=== PATIENT | female | born 1975 | race Two or more races ===

== ENCOUNTER → 2022-11-18 10:06 | Outpatient (BNVA) | payer SELFPAY | PROVIDERS: Visit Provider Physician Assistant Medical | DX: Z02.1 Encounter for pre-employment examination (principal) ==

== ENCOUNTER 2023-05-05 07:17 | Outpatient (REF) | payer OTHER, SELFPAY ==
--- NOTE | ~2023-05-05 | XR_ITS ---
EXAMINATION: XR CHEST 2 VIEWS CLINICAL INFORMATION: Fatigue and recurrent fever. COMPARISON: None. TECHNIQUE: Frontal and lateral views of the chest were obtained. FINDINGS: The heart, great vessels, pulmonary vasculature and mediastinum are normal. The lungs show no focal infiltrate, effusion or pneumothorax. There is no acute osseous abnormality. XR/XR chest 2V IMPRESSION: No active cardiopulmonary disease.
[2023-05-05 07:53] LABS: MANUAL DIFF FLAG NO
[2023-05-05 08:03] LABS: Basophils Percent Auto 0.2 % (0-2); Eosinophils Absolute Auto 0.1 X10*3/uL (0.0-0.4); Eosinophils Percent Auto 0.4 % (0-4); Hematocrit 34.3 % (37.0-47.0); Hemoglobin 11.6 g/dl (12.0-16.0); Imm Gran Abs Auto 0.17 X10*3/uL (0.00-0.03); Imm Gran Pct Auto 0.9 % (0.0-0.4); Lymphocytes Absolute Auto 1.4 X10*3/uL (1.2-4.9); Lymphocytes Percent Auto 7.6 % (20-40); Mean Corpuscular HGB Conc 33.8 g/dl (31.0-35.0); Mean Corpuscular Hemoglobin 29.4 pg (27.0-33.0); Mean Corpuscular Volume 86.8 fL (80.0-98.0); Monocytes Absolute Auto 0.9 X10*3/uL (0.1-1.2); Monocytes Percent Auto 5.1 % (2-11); Neutrophils Absolute Auto 15.5 x10*3/uL (2.0-8.3); Neutrophils Percent Auto 85.8 % (45-73); Platelet Count 329 X10*3/uL (160-400); Red Blood Count 3.95 X10*6/uL (4.20-5.50); Red Cell Distribution Width 14.6 % (11.0-16.0); White Blood Count 18.1 X10*3/uL (4.8-10.8)
[2023-05-05 08:41] LABS: Alanine Aminotransferase 15 U/L (0-31); Albumin Level 3.7 g/dL (3.5-5.0); Alkaline Phosphatase 111 U/L (39-117); Anion Gap 14 (12-20); Aspartate Amino Transferase 24 U/L (5-31); Bilirubin Total 0.3 mg/dL (0.0-1.0); Blood Urea Nitrogen 14 mg/dL (9-16); Carbon Dioxide 21 mmol/L (22-29); Chloride 104 mmol/L (96-108); Estimated Glomerular Filt Rate > 60; Glucose Random 94 mg/dL (60-115); Potassium 3.3 mmol/L (3.3-5.1); Sodium 136 mmol/L (135-145); Total Protein 7.2 g/dL (6.5-8.0)
[2023-05-05 08:46] LABS: Appearance Urine Cloudy; Color Urine Yellow; Glucose Urine UA Negative (Negative); Leukocyte Esterase Urine Moderate (2+) (Negative); Nitrite Urine Positive (Negative); UMIC TRIGGER UA YES; Urine Blood Negative (Negative); Urine Ketones Trace mg/dL (Negative); Urine Protein 100 (2+) mg/dL (Neg-Trace)
[2023-05-05 08:55] LABS: Bacteria Urine 4+ (None Seen); Hyaline Casts Urine 0-2 /LPF (0-2); RBC Urine 0-2 /HPF (0-2); Squamous Epithelial Cell Urine 0-2 /HPF (0-2); WBC Urine >50 /HPF (0-5)
[2023-05-05 09:00] LABS: Influenza A PCR NEGATIVE (Negative); Influenza B PCR NEGATIVE (Negative); Resp Syncy Virus RNA Qual PCR NEGATIVE (Negative); SARS COV2 PCR INHOUSE NEGATIVE (Negative)
[2023-05-06 15:29] LABS: Follicle Stimulating Hormone 63.7 mIU/mL; Lutenizing Hormone 52.2 mIU/mL
[2023-05-06 21:34] LABS: A. Phagocytphilium DNA,RT-PCR NOT DETECTED (NOT DETECTED); Babesia Microti DNA, RT-PCR NOT DETECTED (NOT DETECTED); Borrelia Miyamotoi,DNA RT-PCR NOT DETECTED (NOT DETECTED); E.Chaffeensis DNA RT-PCR NOT DETECTED (NOT DETECTED); Lyme(Borrelia ssp)DNA RT-PCR NOT DETECTED (NOT DETECTED)
[2023-05-11 22:53] LABS: Progesterone <0.1 ng/mL
[2023-05-12 03:19] LABS: Estradiol Ultra Sensitive 12 pg/mL
== END 2023-05-05 07:18 | disposition home or self-care (01) ==
LOC: HO.LAB 07:17
PROVIDERS: Visit Provider Emergency Medicine
DX: Z11.52 Encounter for screening for COVID-19 (principal); R53.83 Other fatigue; R50.9 Fever, unspecified
CPT/HCPCS: 0241U; 71046; 80053; 81001; 82550; 82670; 83001; 83002; 84144; 85025; 87040; 87086; 87088; 87186; 87468; 87469; 87478; 87484; 87798

== ENCOUNTER 2023-09-01 11:13 | Outpatient (REF) | payer OTHER, SELFPAY ==
--- NOTE | ~2023-09-01 | US_ITS ---
EXAMINATION: US PELVIS CLINICAL INFORMATION: Suprapubic pain, palpable fullness, right pelvic pain COMPARISON: None available. TECHNIQUE: Ultrasound of the pelvis is performed using both transabdominal and transvaginal transducers along with Doppler. Transvaginal imaging is performed due to inadequate visualization transabdominally. FINDINGS: Uterus: The uterus is possibly anteverted measuring 8.4 x 3.8 x 0.7 cm. 3.7 x 2.3 x 3.0 cm left-sided uterine body fibroid is seen The double wall endometrial thickness is 0.7 mm. Adnexa: Right ovary is not visualized. 15 x 12 x 18 cm right cystic mass is seen containing septations and internal echoes. Mass contains multiple solid components, largest measuring 5.8 x 3.3 x 4.7 cm. No internal vascularity is demonstrated. Left ovary measures 3.2 x 2.6 x 2.7 cm. Volume is 11.8 mL. US/US pelvic and transvaginal IMPRESSION: Suspicious 18 cm right adnexal mass, predominantly cystic containing multiple solid components, malignancy needs to be excluded. Pelvic MRI and DIRECTOR OF REIMBURSEMENT consultation recommended.
== END 2023-09-01 11:14 | disposition home or self-care (01) ==
LOC: HO.US 11:13
PROVIDERS: Visit Provider Emergency Medicine
DX: R10.30 Lower abdominal pain, unspecified (principal)
CPT/HCPCS: 76830; 76856

== ENCOUNTER 2024-07-07 10:26 | Outpatient (AMB) | payer OTHER, SELFPAY ==
[2024-07-07 10:32] VITALS: BP 102/70; BMI 24.0
--- NOTE | 2024-07-07 10:32 | MHC.PC.OV ---
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 Family Required: No Accompanied by: Self / Same As Patient Allergies No Known Allergies Allergy (Verified 07/07/24 10:53) Medication List - Last Reconciled 07/07/24 by Tiera Mckeon MD apixaban (Eliquis) mg PO Tobacco use date assessed: 07/07/24 Dental Screening Dental Screen Date: 07/07/24 Did you have a dental visit in the last 12 months?: No Did you have a dental problem in the last 6 months where you did not have access to dental care?: No Was dental information given to patient?: Patient has dentist HPI HPI Comments History of Present Illness Details The patient is a 49-year-old female presenting to [facility] following her treatment for primary clear cell adenocarcinoma of the ovary. She submitted to chemotherapy and radiotherapy as part of her initial treatment regimen. 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 She concurrently developed a deep venous thrombosis in the left common iliac vein, further complicating her recovery. Over time, she has successfully regained her ability to ambulate without restriction and has returned to work. Care was previously acquired at [facility], and she describes her current lifestyle as active, with regular exercise being a part of her routine. She has no history of undergoing a colonoscopy or mammogram, although she claims adherence to regular gynecological evaluations. The patient's immunization record includes a Tdap vaccine administered within the last 10 years. On Eliquis for her DVT. [facility] Surgical History (Updated 07/07/24 @ 10:54 by Tiera Mckeon MD) History of hysterectomy with bilateral oophorectomy History of appendectomy Family History Mother Hyperlipidemia Atrial fibrillation Father Diabetes Hypertension Hypothyroidism Hyperlipidemia Family/Other Mental health disorder Social History Housing: Apartment Alcohol intake: current Alcohol intake frequency: a few times a month Alcohol type: beer Patient Tobacco Use Status: Never used Tobacco e-Cigarette/Vaping Use: Never Used Second Hand Smoke Exposure: No service: No Current occupational status: employed Current occupational exposures/hazards: No Cognitive needs: No Hearing needs: No Vision needs: Yes Questionnaire PHQ-9 Over the last 2 weeks, how often have you been bothered by any of the following problems? 1. Little interest or pleasure in doing things: not at all 2. Feeling down, depressed, or hopeless: not at all 3. Trouble falling or staying asleep, or sleeping too much: not at all 4. Feeling tired or having little energy: not at all 5. Poor appetite or overeating: not at all 6. Feeling bad about yourself - or that you are a failure or have let yourself or your family down: not at all 7. Trouble concentrating on things, such as reading the newspaper or watching television: not at all 8. Moving or speaking so slowly that other people could have noticed. Or the opposite - being so fidgety or restless that you have been moving around a lot more than usual: not at all 9. Thoughts that you would be better off or of hurting yourself in some way: not at all Total score: 0 Depression Screening Interpretation: Negative Depression Screening Done: Yes 18508 - PHQ-9 Billing: Yes Source: Developed by Drs. Mekhi Cuevas, Brittney Rg, Brice Dorado and colleagues, with an educational chary from [employer]. Thrive Questionnaire Date Thrive assessed: 07/07/24 I am a: Patient What is your living situation today?: I have a steady place to live Within the past 12 months, did the food you bought not last and you didn't have the money to get more?: Never true Within the past 12 months, did you worry whether your food would run out before you got money to buy more?: Never true Do you have trouble paying for medicines?: No Do you have trouble getting transportation to medical appointments?: No Do you have trouble paying your heating and electricity bill?: No Do you have trouble taking care of your child, family member or friend?: No Do you have trouble with day-to-day activities such as bathing, preparing meals, shopping, managing finances, etc.?: No Are you currently unemployed and looking for a job?: No Are you interested in more education?: No Please select the resources that you would like help with: None Currently or been in a relationship where the following occur: No concerns reported THRIVE Score: 0 AUDIT C Alcohol Use Questionnaire (AUDIT-C) 1. How often do you have a drink containing alcohol?: Monthly or less 2. How many drinks containing alcohol do you have on a typical day when you are drinking?: 1 or 2 3. How often do you have six or more drinks on one occasion?: Never Total Score: 1 AVNI-7 AMB Questionnaire AVNI-7 Date AVNI - 7 assessed: 07/07/24 Feeling nervous, anxious, or on edge: 0 = Not at all Not being able to stop or control worryin = Not at all Worrying too much about different things: 0 = Not at all Trouble relaxin = Not at all Being so restless that it is hard to sit still: 0 = Not at all Becoming easily annoyed or irritable: 0 = Not at all Feeling afraid as if something awful might happen: 0 = Not at all Total AVNI-7 score (0-4 normal; 5-9 mild; 10-14 moderate; 15-21 severe): 0 Source: Developed by Drs. Mekhi Cuevas, Brittney Rg, Brice Dorado and colleagues, with an educational chary from [employer]. AVNI-7 Assessment Billing AVNI-7 Assessment Tool: AVNI-7 Assessment 69940 Review of Systems Const All systems reviewed & are unremarkable except as noted in HPI and below Card Denies chest pain at rest, Denies chest pain with activity, Denies edema, Denies irregular heart rhythm, Denies claudication, Denies dyspnea, Denies dyspnea on exertion, Denies orthopnea, Denies paroxysmal nocturnal dyspnea and Denies slow heart rate Resp Denies cough, Denies dyspnea and Denies dyspnea on exertion Physical exam (Primary Care) Vital Signs: Last Vital Signs BP 102/70 07/07/24 10:32 BMI result Body Mass Index 24.0 Tobacco/Smoking Status: Tobacco use Status Tobacco use date assessed 07/07/24 07/07/24 10:34 Patient Tobacco Use Status Never used Tobacco 07/07/24 10:37 e-Cigarette/Vaping Use Never Used 07/07/24 10:37 PHQ-9: PHQ-9 Score PHQ-9: Total score 0 05/22/25 10:34 Depression Screening Interpretation: Negative Thrive Assessment: Date of Thrive Assessment Date Thrive assessed 07/07/24 07/07/24 10:34 Currently or been in a relationship where the following occur: No concerns reported Resp Effort & Inspection: normal respiratory effort Auscultation: clear to auscultation bilaterally Cardio Jugular venous distension: no JVD Rate: regular rate Rhythm: regular rhythm Heart sounds: S1 normal heart sound present and S2 normal heart sound present Neuro General: no focal motor deficits Extrem General: Yes full ROM Psych Appearance: grossly normal Coding Level of Care Code New Pt Level 3 (81087) Diagnoses Primary clear cell adenocarcinoma of ovary C56.9 Chronic deep vein thrombosis (DVT) of iliac vein of left lower extremity I82.522 Affected thrombotic vein of extremity: iliac Chronicity: chronic Additional Codes PHQ-9 - 94379 - PHQ-9 Billing: Yes ([id number]) AVNI-7 Assessment Billing - AVNI-7 Assessment Tool: AVNI-7 Assessment 68214 ([id number]) Time Spent (min) 19 Assessment & Plan Assessment & Plan (1) Primary clear cell adenocarcinoma of ovary: Code(s): C56.9 - Malignant neoplasm of unspecified ovary Category: Medical (2) Left leg DVT: Comment: common iliac Code(s): I82.402 - Acute embolism and thrombosis of unspecified deep veins of left lower extremity Category: Medical Qualifiers: Affected thrombotic vein of extremity: iliac Chronicity: chronic Qualified Code(s): I82.522 - Chronic embolism and thrombosis of left iliac vein Plan The focus is on continued care monitoring for the clear cell adenocarcinoma of the ovary post-treatment. As the patient has successfully resumed her daily activities, her history of deep venous thrombosis will be under periodic review, with the need for any anticoagulation therapy reassessed accordingly. It is essential to embark on routine cancer screenings such as colonoscopy and mammography. Regular follow-up with OBGYN services is advised, aligning with the recent Tdap vaccination, to ensure continued prevention measures. The patient is encouraged to maintain her active lifestyle, benefiting her health recovery and general wellness. Patient was informed and verbally consented to the use of an ambient scribe for clinic note documentation during this visit. I explained the importance of continued monitoring after the treatment of primary clear cell adenocarcinoma of the ovary and emphasized the need for routine cancer screenings going forward. I discussed the potential necessity of re-evaluating anticoagulation therapy for her previous deep venous thrombosis. We reviewed the benefits of maintaining current OBGYN visits and stressed the positive impact of an active lifestyle on her post-treatment recovery. I recommended initiating regular colonoscopy and mammography screenings. The patient expressed understanding and agreement with the outlined plan and acknowledged the benefits of ongoing preventative health measures. Orders: Orders MM tomosynthesis screening BI Today Z12.31 - Encounter for screening mammogram for malignant neoplasm of breast Referrals Open Access Screening Colonoscopy Referral Z12.12 - Encounter for screening for malignant neoplasm of rectum Patient Instructions: - Keep up with regular exercise to maintain an active lifestyle. - Schedule and complete routine cancer screenings (colonoscopy and mammography). - Continue with OBGYN visits and follow-up on vaccination history. - Remain vigilant about any symptoms that may affect your ability to move. - Monitor any signs of previous DVT recurrence and seek care if issues arise.
--- OUTSIDE RECORDS SUMMARY | 2024-07-07 10:57 | XMS_ITS | Encounter Summary ---
Author Organization [facility] and [facility] Address [address] [place] [phone] Care Team Providers Care Aviation Safety Inspector Name Role Phone No, Pcp (Do Not Change Name) Primary Care Provid er Unavailable Reason for Visit * Reason Comments Medication Refill Encounter Details Date Type Department Care Team (Late Contact Info) Description 05/09/2022 Refill [facility] [address] [address] Irlanda Hernandez, [facility] [address] [place] [address] Medication Refill Social History Tobacco Use Types Packs/Day Years Used Date Smoking Tobacco: Never Smokeless Tobacco: Never Alcohol Use Standard Drinks/Week Comments Yes 0 (1 standard drink = 0.6 oz pur e alcohol) Once a month Comments No Sex and Gender Information Value Date Recorded Sex Assigned at Female 04/03/2021 11:25 AM EST Legal Sex Female 11:09 AM EST Gender Identity Female 04/03/2021 11:25 AM EST Sexual Orientation Straight 04/03/2021 11 :25 AM EST documented as of this encounter Plan of Treatment Upcoming Encounters Date Type Department Care Team (Late Contact Info) Description 07/27/2024 11:30 AM EDT Office Visit [facility] [address] [address] Luigi Spencer MD [address] [place] [phone] documented as of this encounter Visit Diagnoses Not on filedocumented in this encounter Care Teams Aviation Safety Inspector Relationship Specialty Start Date End Date No, Pcp (Do Not Change Name) PCP - General 01/28/21 documented as of this encounter
--- OUTSIDE RECORDS SUMMARY | 2024-07-07 10:57 | XMS_ITS | Encounter Summary ---
Author Organization [facility] and [facility] Address [address] [place] [phone] Care Team Providers Care Record Cutter Name Role Phone No, Pcp (Do Not Change Name) Primary Care Provid er Unavailable Reason for Referral * Imaging (Routine) - New Request Specialty Diagnoses / Procedures Referred By Harmeet allison Referred To Contact Diagnostic Radiology Procedures Pelvic US Irlanda Hernandez CNM [address] [place] [address] Phone: tel: fax: Referral ID Status Reason Start Date Expiration Date V isits Requested Visits Authorized [id number] New Request 09/17/2023 09/16/2024 1 1 Encounter Details Date Type Department Care Team (Late st Contact Info) Description 09/17/2023 Scanned Document [facility] [address] [place] [address] Irlanda Hernandez CNM [address] [place] [address] Social History Tobacco Use Types Packs/Day Years [...] Encounters Date Type Department Care Team (Late st Contact Info) Description 07/27/2024 11:30 AM EDT Office Visit [facility] at [address] [address] Luigi Spencer MD [address] [place] [address], [place] [phone] documented as of this encounter Procedures Procedure Name Priority Date/Time Associated Diagnosis Comments PELVIC US Routine 09/01/2023 9:22 AM EDT documented in this encounter Results * Pelvic US (09/01/2023 9:22 AM EDT) Anatomical Region Laterality Modality Pelvis, Ortho Pelvis, RCC Abdomen/Pelvis Ultrasound us Irlanda Hernandez CNM IMG US ORDERABLES Final Result documented in this encounter Visit Diagnoses Not on filedocumented in this encounter Care Teams Record Cutter Relationship Specialty Start Date End Date No, Pcp (Do Not Change Name) PCP - General 01/28/21 documented as of this encounter
--- OUTSIDE RECORDS SUMMARY | 2024-07-07 10:57 | XMS_ITS ---
Author Organization [facility] Address [address] [place] [address] Phone Care Team Providers Care Special Diet Cook Name Role Phone No, Pcp (Do Not Change Name) Primary Care Provid er Unavailable Active Problems Problem Noted Date Diagnosed Date Ovarian cancer (HC Code) 10/15/2023 Post-operative state 09/25/2023 Postoperative state 09/25/2023 S/P hysterectomy 09/25/2023 Graves' disease 02/19/2012 Current Oncology Plans OP Bevacizumab 15 mg/kg every 21 days* Plan Start Date:02/23/2024 Plan Provider:Luigi Spencer MD Linked Problems Malignant neoplasm of ovary, unspecified laterality (HC Code) Treatment Medications Current Day (Day 1 , Cycle 1 - Planned for 02/25/2024) Next Day (Day 1, Cycle 2 - Planned for 03/17/2024) BEVACIzumab-awwb (MVASI) infusion bevacizumab-awwb (MVASI) 865.5 mg in sodium chloride 0.9% 100 mL infusion bevacizumab-awwb (MVASI) 865.5 mg in sodium chloride 0.9% 100 mL infusion Past Plans Oncology Treatment Plan Name Start Date Discontinue Date Treatment Medications Discontinue Reason Plan Provider Cycles OP Paclitaxel (175 mg/m2) + Carboplatin (AUC 5) every 21 days 4 02/22/2024 BEVACIzumab-awwb (MVASI) infusionCARBOplatin (PARAPLATIN) infusion (by AUC)PACLItaxel (TAXOL) >= 201 mg in 500 mL infusion Therapy Complete Yamilet Garcia MD MPH 6 of 6 cycles started Radiation Treatments * No radiation treatments are documented for this patient in [facility]. Treatments may have been administered in another system.
--- OUTSIDE RECORDS SUMMARY | 2024-07-07 10:58 | XMS_ITS | Clinical Summary ---
Author Organization [facility] Address [address] [place] [address] Care Team Providers Care Medical Research Associate Name Role Phone Pcp, No Primary Care Provider Unavailabl e Allergies No known active allergies Medications No known medications Immunizations Immunization Administration Dates Next Due Covid-19 mRNA Primary Series Vaccine - Moderna 0.5 mL Full Dose 03/19/2020,02/08/2020 Social History Tobacco Use Types Packs/Day Years Used Date Smoking Tobacco: Never Smokeless Tobacco: Never Comments No Sex and Gender Information Value Date Recorded Sex Assigned at Not on file Legal Sex Female 8:20 PM EST Gender Identity Female 03/15/2020 10:30 AM EST Sexual Orientation Not on file Last Filed Vital Signs Vital Sign Reading Time Taken Comments Blood Pressure 112/71 05/09/2021 8:59 AM EDT Pulse 104 05/09/2021 8:59 AM EDT Temperature 37 ??C (98.6 ??F) 05/09/2021 8:59 AM EDT Respiratory Rate 16 05/09/2021 8:59 AM EDT Oxygen Saturation 99% 05/09/2021 8:59 AM EDT Inhaled Oxygen Concentration - - Weight 50.8 kg (112 lb) 02/05/2019 8:23 PM EST Height 157.5 cm (5' 2 ) 02/05/2019 8:23 PM EST Body Mass Index 20.49 02/05/2019 8:23 PM EST Plan of Treatment Health Maintenance Due Date Last Done Comments Hepatitis C Virus Screening 1976 HIV Screening 1989 DTaP/Tdap/Td Vaccines (1 - Tdap) 05/27/1995 Hepatitis B Vaccines (1 of 3 - 19+ 3-dose series) 05/27/1995 Pap Smear (Ages 21-65) 1997 Mammogram 2016 Colonoscopy 2021 COVID-19 Vaccine (3 - 2023-2 5 season) 2023 03/19/2020, 02/08/2020 Influenza Vaccine 09/16/2024 12/22/2019 Pneumococcal Vaccine: Pediatric (0-5 Years) and At-Risk Patients (6 to 49 Years) Aged Out No longer eligible b ased on patient's age to complete this topic Insurance [facility] - PPO Care Teams Medical Research Associate Relationship Specialty Start Date End Date Pcp, No PCP - General General Medicine 02/05/19
--- OUTSIDE RECORDS SUMMARY | 2024-07-07 10:58 | XMS_ITS | Clinical Summary ---
Author Organization [facility] [address] [facility] Address [address] [place] [address] Phone Care Team Providers Care Community Outreach Specialist Name Role Phone No, Pcp (Do Not Change Name) Primary Care Provid er Unavailable Allergies No known active allergies Medications valACYclovir (VALTREX) 500 mg tablet Take 1 tablet (500 mg total) by mouth daily. 90 tablet 3 09/22/2023 Active acetaminophen (TYLENOL) 325 mg tabletIndication s:Post-operative state Take 3 tablets (975 mg total) by mouth every 6 (six) hours as needed for pain. 30 tablet 09/29/2023 Active ELIQUIS 5 mg Tab tabletIndication s:Malignant neoplasm of ovary, unspecified laterality (HC Code),Acute deep vein thrombosis (DVT) of left lower extremity, unspecified vein (HC Code) TAKE TWO TABLETS TWICE DAILY FOR 7 DAYS THEN ONE TABLET TWICE DAILY 74 tablet 2 05/23/2024 Active Active Problems Problem Noted Date Diagnosed Date Ovarian cancer (HC Code) 10/15/2023 Post-operative state 09/25/2023 Postoperative state 09/25/2023 S/P hysterectomy 09/25/2023 Graves' disease 02/19/2012 Encounters Date Type Department Care Team Description 05/27/2024 4:00 PM EDT Telemedicine [facility] [address] [id number] David, Irlanda Rendeiro, CNM Malignant neoplasm of ovary, unspecified laterality (HC Code) (Primary Dx); Acute deep vein thrombosis (DVT) of distal vein of left lower extremity (HC Code) 05/24/2024 Telephone [facility] [address] [facility] [address] David, Irlanda Darling, CNM Other 05/21/2024 Refill Gynecologic Oncology at [address] [place] [address] Zaki Mason APRN Medication Refill 05/18/2024 Telephone Gynecologic Oncology at [address] [place] [address] Luigi Spencer MD Forms 04/27/2024 9:50 AM EDT Office Visit Gynecologic Oncology at [address] [place] [address] Luigi Spencer MD Malignant neoplasm of ovary, unspecified laterality (HC Code) (Primary Dx) 04/25/2024 10:09 AM EDT - 04/25/2024 11:59 PM EDT Hospital Encounter [facility] [address] [place] [address] Lisa Bean PA Malignant neoplasm of ovary, unspecified laterality (HC Code) Discharge Disposition: Home or Self Care 04/12/2024 11:00 AM EST Follow Up Interventional Radiology at [address] [place] [address] King Wesley MD Chronic deep vein thrombosis (DVT) of pelvic vein (Primary Dx) from Last 3 Months Immunizations Name Administration Dates Next Due Influenza, injectable, MDCK, quad, preservative free 01/14/2022 Influenza, injectable, quadrivalent, preservativ e free 12/22/2019 Family History Medical History Relation Name Comments Diabetes Father Arian Richey Hypertension Father Arian Richey High cholesterol Mother Latricia Glover Breast cancer Neg Hx Colon cancer Neg Hx Ovarian cancer Neg Hx Thrombophilia Neg Hx Uterine cancer Neg Hx Relation Name Status Comments Father Arian Richey Mother Latricia Glover Social History Tobacco Use Types Packs/Day Years Used Date Smoking Tobacco: Never Smokeless Tobacco: Never Tobacco Cessation:Counseling Given: Not Answered Alcohol Use Standard Drinks/Week Comments Yes 0 (1 standard drink = 0.6 oz pur e alcohol) Once a month [facility] Utilities Answer Date Recorded In the past 12 months has th e electric, gas, oil, or water company threatened to shut off services in your home? No 09/26/2023 PHQ-2 Answer Date Recorded PHQ-2 Total Score 0 04/12/2024 Hunger Vital Sign Answer Date Recorded Within the past 12 months, y ou worried that your food would run out before you got the money to buy more. Never true 09/26/19 24 Within the past 12 months, t he food you bought just didn't last and you didn't have money to get more. Never true 09/26/2023 PRAPARE - Transportation Answer Date Re corded In the past 12 months, has l ack of transportation kept you from medical appointments or from getting medications? No 09/16 In the past 12 months, has l ack of transportation kept you from meetings, work, or from getting things needed for daily living? No 09/26/2023 Housing Stability Answer Date Recorded What is your living situation today? I have a [facility] place to live 09/26/2023 Housing Stability Not on file 09/26/2023 Interpersonal Safety Answer Date Record ed Is there anyone in your life that is hurting or threatening you in anyway? no 04/12/2024 Physical Indicators of Abuse No evidence of phys ical abuse 04/12/2024 Comments No Sex and Gender Information Value Date Recorded Sex Assigned at Female 04/03/2021 11:25 AM EST Legal Sex Female 11:09 AM EST Gender Identity Female 04/03/2021 11:25 AM EST Sexual Orientation Straight 04/03/2021 11 :25 AM EST Last Filed Vital Signs Vital Sign Reading Time Taken Comments Blood Pressure 113/72 02/24/2024 10:43 AM EST Pulse 110 02/24/2024 10:43 AM EST Temperature 37.1 ??C (98.7 ??F) 02/24/2024 10:[address] Respiratory Rate 19 02/24/2024 10:43 AM EST Oxygen Saturation 97% 02/24/2024 10:43 AM EST Inhaled Oxygen Concentration - - Weight 54.4 kg (120 lb) 03/01/2024 10:54 AM EST per patient Height 157.5 cm (5' 2 ) 03/01/2024 10:54 AM EST Body Mass Index 21.95 03/01/2024 10:54 AM EST Plan of Treatment Upcoming Encounters Date Type Department Care Team (Late st Contact Info) Description 07/27/2024 11:30 AM EDT Office Visit Gynecologic Oncology at [address] [place] [address] Luigi Spencer MD [address] [place] [address], [place] [address] Health Maintenance Due Date Last Done Comments Tetanus adult (Td q 10,TDAP once) 1996 Breast cancer screening 2016 Lipid disorder screening 2016 Covid-19 vaccine series (3 - Moderna risk series) 04/16/2020 03/19/2020, 02/08/2020 Colon cancer screening, Colonoscopy 2021 Influenza vaccine 10/17/2024 01/14/2022, 12/22/2019 Cervical cancer screening 04/03/2026 04/03/2021 Diabetes screening 04/26/2027 04/25/2024, 1 04/04/2023, 01/12/2024, Additional history exists RSV Immunization (1 - 1-dose 75+ series) 05/27/2051 HIV screening Completed 04/03/2021 Hepatitis C screening Completed 10/21/2023, 022 Meningococcal Vaccine Aged Out No river [place] eligible based on patient's age to complete this topic Pneumococcal Vaccine (2 - 49 years) Aged Out No longer eligible based on patient's age to complete this topic Procedures Procedure Name Priority Date/Time Associated Diagnosis Comments COMPREHENSIVE METABOLIC PANEL Routine 04/25/2024 10:12 AM EDT Malignant neoplasm of ovary, unspecified laterality (HC Code) CBC AND DIFFERENTIAL Routine 04/25/2024 10:12 AM EDT Malignant neoplasm of ovary, unspecified laterality (HC Code) COMPREHENSIVE METABOLIC PANEL Routine 04/25/2024 10:12 AM EDT Malignant neoplasm of ovary, unspecified laterality (HC Code) CBC WITH AUTO DIFFERENTIAL Routine 04/25/2024 10:12 AM EDT Malignant neoplasm of ovary, unspecified laterality (HC Code) CA 125 Routine 04/25/2024 10:12 AM EDT Malignant neoplasm of ovary, unspecified laterality (HC Code) HEPATITIS C AB WITH REFLEX TO HCV PCR Routine 10/21/2023 1:57 PM EDT Malignant neoplasm of ovary, unspecified laterality (HC Code) TX CYTOPAT,CER/VAG,THIN LAYER,MAN RES,INTER Routine 04/03/2021 3:10 PM EST HIV 1/2 AG/AB, W/REFLEXES (Q) Routine 04/03/2021 1:14 PM EST Well woman exam with routine gynecological exam from Last 3 Months or Most Recently Relevant to Health Maintenance Results * Comprehensive metabolic panel (04/25/2024 10:12 AM EDT) Sodium 140 136 - 144 mmol/L 04/25/2024 6:35 PM EDT [facility] Potassium 3.9 3.3 - 5.3 mmol/L 04/25/2024 6:35 PM EDT [facility] Chloride 103 98 - 107 mmol/L 04/25/2024 6:35 PM EDT [facility] CO2 23 20 - 30 mmol/L 04/25/2024 6:35 PM EDT [facility] Anion Gap 14 7 - 17 04/25/2024 6:35 PM EDT [facility] Glucose 93 70 - 100 mg/dL 04/25/2024 6:35 PM EDT [facility] BUN 16 6 - 20 mg/dL 04/25/2024 6:35 PM EDT [facility] Creatinine 0.71 0.40 - 1.30 mg/dL 04/25/2024 6:35 PM EDT [facility] Calcium 10.1 8.8 - 10.2 mg/dL 04/25/2024 6:35 PM [facility] DEPARTMENT OF LABORATORY MEDICINE BUN/Creatinine Ratio 22.5 8.0 - 23.0 04/25/2024 6:35 PM [facility] LAB[facility]ATORY MEDICINE Total Protein 7.0 5.9 - 8.3 g/dL 025 6:35 PM [facility]IC[facility] Comment:As of 2023, th e reference interval for Total Protein has been changed from (6.6 to 8.7 g/dL) to (5.9 to 8.3 g/dL). Albumin 4.8 3.6 - 5.1 g/dL 04/25/2024 6:35 PM [facility]IC[facility] Comment:As of 2023, e reference interval for Albumin has been changed from (3.6 to 4.9 g/dL) to (3.6 to 5.1 g/dL). Total Bilirubin 0.2 <=1.2 mg/dL 04/26/19 25 6:35 PM [facility]ATORY MEDICINE Alkaline Phosphatase 93 9 - 122 U/L 04/25/2024 6:35 PM [facility] MEDICINE Alanine Aminotransferase (ALT) 15 10 - 35 U/L 04/25/2024 6:35 PM [facility] Comment:Calcium dobesilate c an cause artificially low ALT results at therapeutic concentrations Aspartate Aminotransferase (AST) 19 10 - 35 U/L 04/25/2024 6:35 PM [facility]ORY MEDICINE Globulin 2.2 2.0 - 3.9 g/dL 04/25/2024 6:35 PM [facility] MEDICINE Comment:As of 2023, e reference interval for Globulin has been changed from (2.3 to 3.5 g/dL) to (2.0 to 3.9 g/dL). A/G Ratio 2.2 1.0 - 2.2 04/25/2024 6:35 PM [facility] OF LAB[facility]ATORY MEDICINE AST/ALT Ratio 1.3 Reference Range Not Established 04/25/2024 6:35 PM EDT [facility]ORY MEDICINE eGFR (Creatinine) >60 >=60 mL/min/1.73m2 04/25/2024 6:35 PM EDT [facility]ORY MEDICINE Comment: [facility] utilizes CKD-EPI Creatinine 2020 to report eGFR. Values < 60 mL/min/1.73 m2 may indicate CKD if present for more than three months AND creatinine is at steady state. The eGFR provides a rough estimate of kidney function. For further guidance, please refer to the CKD: Adult Vehicle Leasing And Rental Manager Signature pathway. Creatinine Delta -0.04 See Comment 025 6:35 PM EDT [facility] MEDIC[facility] Comment: Delta creatinine is the difference between the current creatinine and the most recent prior creatinine (if available within the previous 12 months). It is intended to detect significant changes in kidney function for patients whose creatinine is <5 mg/dL. A delta is not calculated for patients whose baseline creatinine is >=5 mg/dL or those who do not have a baseline within the last year. The following deltas will flag as critical (triggering a call from the laboratory): a) Deltas >= +1.5 mg/dL for patients with baseline creatinine <= 1.5 mg/dL. b) Deltas >= +3 mg/dL for patients with baseline creatinine between 1.5 and 5 mg/dL. Blood Venipuncture / Unknown 04/25/2024 10:12 AM EDT 04/25/2024 10:12 AM EDT Lisa HENLEY LAB BLOOD ORDERABLES Final Result [facility] DEPARTMENT OF LABORATORY MEDICINE [address] [place] [address] * (ABNORMAL) CBC auto differential (04/25/2024 10:12 AM EDT) [facility] WBC 7.7 4.0 - 11.0 x1000/??L 04/25/2024 1:35 PM EDT [facility] LAB[facility]ATORY MEDICINE RBC 4.07 4.00 - 6.00 M/??L 04/25/2024 1:35 PM EDT [facility]IC[facility] Hemoglobin 12.7 11.7 - 15.5 g/dL 04/25/2024 1:35 PM [facility] DEPARTMENT OF LABORATORY MEDICINE Hematocrit 39.10 35.00 - 45.00 % 04/25/2024 1:35 PM [facility] DEPARTMENT OF LABORATORY MEDICINE MCV 96.1 80.0 - 100.0 fL 04/25/2024 1:35 PM T [facility] MEDICINE MCH 31.2 27.0 - 33.0 pg 04/25/2024 1:35 PM [facility] DEPARTMENT OF LABORATORY MEDICINE MCHC 32.5 31.0 - 36.0 g/dL 04/25/2024 1:35 PM [facility] OF LABORATORY MEDICINE RDW-CV 14.0 11.0 - 15.0 % 04/25/2024 1:35 PM [facility] LAB[facility]ATORY MEDICINE Platelets 292 150 - 420 x1000/??L 04/25/2024 1:35 PM [facility] LAB[facility]ORY MEDICINE MPV 10.3 8.0 - 12.0 fL 04/25/2024 1:35 PM [facility] LAB[facility]ATORY MEDICINE Neutrophils 57.2 39.0 - 72.0 % 04/25/2024 1:35 PM [facility] LAB[facility]ORY MEDICINE Lymphocytes 26.5 17.0 - 50.0 % 04/25/2024 1:35 PM [facility] LAB[facility]ORY MEDICINE Monocytes 13.9(H) 4.0 - 12.0 % 04/25/2024 1:35 PM [facility] LAB[facility]ATORY MEDICINE Eosinophils 1.3 0.0 - 5.0 % 04/25/2024 1:35 PM [facility] LAB[facility]ORY MEDICINE Basophil 0.5 0.0 - 1.4 % 04/25/2024 1:35 PM [facility] LAB[facility]ATORY MEDICINE Immature Granulocytes 0.6 0.0 - 1.0 % 04/25/2024 1:35 PM [facility] LAB[facility]ATORY MEDICINE nRBC 0.0 0.0 - 1.0 % 04/25/2024 1:35 PM T [facility] MEDIC[facility] Absolute Lymphocyte Count 2.04 0.60 - 3.70 x 1000/??L 04/25/2024 1:35 PM EDT [facility] Monocyte Absolute Count 1.07(H) 0.00 - 1.00 x 1000/??L 04/25/2024 1:35 PM EDT [facility] Eosinophil Absolute Count 0.10 0.00 - 1.00 x 1000/??L 04/25/2024 1:35 PM EDT [facility] Basophil Absolute Count 0.04 0.00 - 1.00 x 1000/??L 04/25/2024 1:35 PM EDT [facility] MEDIC[facility] Absolute Immature Granulocyte Count 0.05 0.00 - 0.30 x 1000/??L 04/25/2024 1:35 PM EDT [facility] MEDIC[facility] Absolute nRBC 0.00 0.00 - 1.00 x 1000/??L 04/25/2024 1:35 PM EDT [facility]ORY MEDICINE ANC (Abs Neutrophil Count) 4.41 2.00 - 7.60 x 1000/??L 04/25/2024 1:35 PM EDT [facility] MEDIC[facility] Blood Venipuncture / Unknown 04/25/2024 10:12 AM EDT 04/25/2024 10:12 AM EDT Lisa HENLEY LAB BLOOD ORDERABLES Final Result [facility] OF LAB[facility]ATORY MEDICINE [address] [place] [address] * CA 125 (04/25/2024 10:12 AM EDT) CA 125 (YH) 9.6 <=38.1 U/mL 04/25/2024 2:28 PM EDT [facility]ICINE Comment: Samples should not be taken from patients receiving therapy with high biotin doses (i.e. > 5 mg/day) until at least 8 hours following the last biotin administration. Transitioned to [employer] e801 method November 22, 2019. The results cannot be interpreted as absolute evidence of the presence or absence of malignant disease. ??The values obtained from a different assay method or kits cannot be used interchangeably. ??This test was performed on the Summer e801 manufactured by [employer] using an ElectroChemiLuminescence immunoassay. Blood Venipuncture / Unknown 04/25/2024 10:12 AM EDT 04/25/2024 10:12 AM EDT Lisa Bean PA LAB BLOOD ORDERABLES Final Result Performing Organization Address [facility] de Phone Number [facility] DEPARTMENT OF LAB[facility]ATORY MEDICINE [address] [place] [address] * Hepatitis C Ab with reflex to HCV PCR (10/21/2023 1:57 PM EDT) [facility] Hepatitis C Antibody Negative Negative 10/21/2023 4:55 PM EDT [facility] LAB[facility]ORY MEDICINE Comment:A negative result do es not exclude HCV infection, since antibodies are not detectable for 4-8 weeks after initial infection, or may not develop in compromised hosts. In high-risk individuals, repeat antibody testing in 2 months and/or HCV RNA PCR should be considered. Blood Venipuncture / Unknown 10/21/2023 1:57 PM EDT 10/21/2023 2:33 PM EDT Yamilet Garcia MD MPH LAB BLOOD ORDERAB LES Final Result Performing Organization Address [facility] de Phone Number [facility] DEPARTMENT OF LABORATORY MEDICINE [address] [place] [address] * Cytology neckties painter cases () (04/03/2021 3:10 PM EST) Cytology Yarn Sorter Cases ?CYTOLOGY REPORT ? Procedures/Addenda Attached Patient: LUAN JOHNSON ?MR #: [id number] ?Submitted by: Irlanda Hastings,JEAN-CLAUDE LNM FINAL DIAGNOSIS SUREPATH PAP SMEAR: ? Primary Diagnosis: ? NEGATIVE FOR INTRAEPITHELIAL LESION OR MALIGNANCY. ? Additional Findings: NO ENDOCERVICAL CELLS SEEN. CELLULAR FEATURES CONSISTENT WITH INFLAMMATION RELATED CHANGES. HIGH RISK HPV CO-TESTING HAS BEEN PERFORMED AND THE RESULT IS NEGATIVE. Specimen Adequacy: THIS SPECIMEN IS SATISFACTORY FOR EVALUATION. ? This specimen was manually screened with the assistance of the [employer](Chiasma Imaging System. Recommendation: According to the current ASCCP guidelines for managing abnormal cervical cancer screening tests, women, with negative cytology (including those lacking an adequate endocervical/trans itional zone component) and negative HPV as well as a history of negative screens, should be followed according to the routine screening schedule such as 3 year screening with cytology alone or every 5 years with cytology and high risk HPV cotesting. ??(Danny et al. J Low Genital Tract Disease. 2013; 17: S1) NOTE: ??Cervical/vaginal cytology is a screening tool for cervical carcinoma and its precursor lesions with an inherent false negative rate. ??It is an inaccurate test for detection of endometrial lesions and should not be used to evaluate suspected endometrial abnormalities. ??(The [employer] System, 2001) ?? 04/11/2021 10:09 ?* Report Electronically Signed Out * ? This electronic signature indicates that the pathologist has personally reviewed the available gross and/or microscopic material and has based the diagnosis on that evaluation. ? Specimen(s) Received: SUREPATH PAP SMEAR Clinical History and Impression: {Not Available} ?? Procedures/Addenda MOLECULAR DX: HR HPV SCREENING ?Pathologist: ? [facility] ? Status: ??Signed Out ? Ordered: ? 04/03/2021 ?Reported: ? 04/05/2021 12:36 ? Interpretation Specimen: SUREPATH PAP SMEAR BELOW CUTOFF FOR HIGH RISK HPV HPV types 16, 18, 31, 33, 35, 39, 45, 51, 52, 56, 58, 59, 66, and 68 DNA were either considered NEGATIVE, undetectable,or below the pre-set threshold. Note: Cut off ranges for HR HPV values have been determined by [employer] and found to be POSITIVE for OTHER HR HPV types and HPV type [address] Value is = 40.0 and for HPV type [address] value is = 40.5. ??Cut off ranges for HR HPV values have been determined by [employer] and found to be NEGATIVE for OTHER HR HPV types and HPV type [address] value is > 40.[address] value is > 40.5 for HPV type 16. This test was performed at [facility] Department of Pathology, [address] [place] [id number], CLIA# [id number] using the [employer] summer 4800 HPV Test System and is only approved by the Food and Drug Administration (FDA) for use oncervicalspecimen s collected in Cytyc Preservcyt Solution (ThinPrep). When using ThinPrep liquid based samples for non-cervical specimens, SurePath liquid based samples, or formalin fixed paraffin embedded tissue, the performance characteristics have been determined by [facility]. Although testing on samples that are not cervical in origin, and/or in any other medium besides ThinPrep, has not been cleared or approved by the FDA, the FDA has determined that such clearance or approval is not necessary. ? [facility] Cervical Tracking Result Non-Tracking [facility] High Risk HPV Screening Non-Tracking [facility] 04/03/2021 3:10 PM EST Comment:SUREPATH PAP SMEAR+ HPV us Irlanda Hernandez CNM PATHOLOGY/CYTOLOGY ORDERABLES Final Result [facility] Department of Pathology [address] [place] [address] [phone] [place] [address] * HIV 1/2 ag/ab, w/reflexes (Q) (04/03/2021 1:14 PM EST) HIV Ag/Ab, 4th Generation NON-REACT JOSE NON-REACT JOSE [facility] Comment: HIV-1 antigen and HIV-1/HIV-2 antibodies were not detected. There is no laboratory evidence of HIV infection. PLEASE NOTE: This information has been disclosed to you from records whose confidentiality may be protected by state law. ??If your state requires such protection, then the state law prohibits you from making any further disclosure of the information without the specific written consent of the person to whom it pertains, or as otherwise permitted by law. A general authorization for the release of medical or other information is NOT sufficient for this purpose. ?? For additional information please refer to http://education.[employer]/faq/MJG544 (This link is being provided for informational/ educational purposes only.) The performance of this assay has not been clinically validated in patients less than 2 years old. Blood 04/03/2021 1:14 PM EST 04/03/2021 1:14 PM EST Narrative [facility] - 04/04/2021 5:17 AM EST FASTING:NO FASTING: NO Resulting Agency Comment Performing Lab: ?Site ID: [id number] ?Name: [employer] ?Address: [address] [place] [address], [facility] [address] ?Director: Akiko Schneider M.D. Irlanda GARCIA LAB BLOOD ORDERABL ES Final Result [facility] [address] [place] [phone] [place] [address] from Last 3 Months or Most Recently Relevant to Health Maintenance Insurance Advance Directives * Full Code (Latest Code Status on File) Date Activated Date Inactivated Comments 09/25/2023 6:32 PM 09/28/2023 2:33 PM Care Teams Community Outreach Specialist Relationship Specialty Start Date End Date No, Pcp (Do Not Change Name) PCP - General 01/28/21
--- OUTSIDE RECORDS SUMMARY | 2024-07-07 10:58 | XMS_ITS | Encounter Summary ---
Author Organization [facility] Address [address] [place] [address] Care Team Providers Care Electronic Engraver Name Role Phone Pcp, No Primary Care Provider Unavailabl e Encounter Details Date Type Department Care Team (Late st Contact Info) Description 11/07/2019 Lab Requisition [facility] COVID-[address] Testing [address] [phone] Maximo Slater PA-C [address] [place] [id number] Encounter for laboratory testing for COVID-19 virus Social History Tobacco Use Types Packs/Day Years Used Date Smoking Tobacco: Never Assessed Comments Unknown Sex and Gender Information Value Date Recorded Sex Assigned at Not on file Legal Sex Female 8:20 PM EST Gender Identity Female 03/15/2020 10:30 AM EST Sexual Orientation Not on file documented as of this encounter Plan of Treatment Not on file documented as of this encounter Procedures Procedure Name Priority Date/Time Associated Diagnosis Comments (REPORT) SARS COV-2 RNA (COVID-19), QUAL Routine 11/07/2019 12:51 PM EDT Encounter for laboratory testing for COVID-19 virus [ICD-10-CM] documented in this encounter Results * SARS CoV-2 RNA (COVID-19), Qual (11/07/2019 12:51 PM EDT) SARS CoV 2 RNA, Qual NOT DETECTED NOT DETECTED 11/09/2019 5:00 PM EDT [facility] Comment: A Not Detected (negative) test result for this test means that SARS- CoV-2 RNA was not present in the specimen above the limit of detection. A negative result does not rule out the possibility of COVID-19 and should not be used as the sole basis for treatment or patient management decisions. ??If COVID-19 is still suspected, based on exposure history together with other clinical findings, re-testing should be considered in consultation with public health authorities. Laboratory test results should always be considered in the context of clinical observations and epidemiological data in making a final diagnosis and patient management decisions. Please review the Fact Sheets and FDA authorized labeling available for health care providers and patients using the following websites: https://www.FirstBest.D[employer]rex Gear/home/Covid-19/HCP/ReciclataLDT/ fact-sheet.html https://www.Monitor My Meds/home/Covid-19/Patients/QuestLDT/ fact-sheet.html ?? This test has been authorized by the FDA under an Emergency Use Authorization (EUA) for use by authorized laboratories. Due to the current public health emergency, [facility] is receiving a high volume of samples from a wide variety of swabs and media for COVID-19 testing. In order to serve patients during this public health crisis, samples from appropriate clinical sources are being tested. Negative test results derived from specimens received in non-commercially manufactured viral collection and transport media, or in media and sample collection kits not yet authorized by FDA for COVID-19 testing should be cautiously evaluated and the patient potentially subjected to extra precautions such as additional clinical monitoring, including collection of an additional specimen. Methodology: ??Nucleic Acid Amplification Test (NAAT) includes PCR or TMA ?? Additional information about COVID-19 can be found at the [facility] website: www.Asuragen.Dexrex Gear/Covid19. Microbiology Nasopharyngeal swab / Unknown 11/07/2019 12:51 PM EDT 11/07/2019 12:51 PM EDT Narrative [facility] - 11/09/2019 5:00 PM EDT Performing Organization Information: ?Site ID: [id number] ?Name: [facility] ?Address: [address] [place] [address],[place] [address] ?Director: DEVEN MERINO MD [facility] License number [id number] Maximo Slater PA-C BODY FLUIDS AND STOOLS OR DERABLES Final Result Performing Organization Address City/State/[facility] Co de Phone Number [facility] documented in this encounter Visit Diagnoses Diagnosis Encounter for laboratory testing for COVID-19 virus documented in this encounter Care Teams Electronic Engraver Relationship Specialty Start Date End Date Pcp, No PCP - General General Medicine 02/05/19 documented as of this encounter
--- OUTSIDE RECORDS SUMMARY | 2024-07-07 10:58 | XMS_ITS | Encounter Summary ---
Author Organization [facility] Address [address] [place] [phone] Care Team Providers Care Bridge Design Engineer Name Role Phone No, Pcp (Do Not Change Name) Primary Care Provid er Unavailable Encounter Details Date Type Department Care Team (Latest Contact Info) Description 09/23/2023 Transcribed Orders [facility] Laboratory Specimens [address], [place] [id number] Luigi Spencer MD [address] [place] [address] Preop examination (Primary Dx) Social History Tobacco Use Types Packs/Day Years Used Date Smoking Tobacco: Never Smokeless Tobacco: Never Alcohol Use Standard Drinks/Week Comments Yes 0 (1 standard drink = 0.6 oz pur e alcohol) Once a month [facility] Utilities Answer Date Recorded In the past 12 months has [employer], gas, oil, or water [facility] threatened to shut off services in your home? No 09/26/2023 PHQ-2 Answer Date Recorded PHQ-2 Total Score 0 09/26/2023 Hunger Vital Sign Answer Date Recorded Within [...] your living situation today? I have a [place] place to live 09/26/2023 Housing Stability Not on file 09/26/2023 Interpersonal Safety Answer Date Record ed Is there anyone in your life that is hurting or threatening you in anyway? no 09/26/2023 Physical Indicators of Abuse No evidence of phys ical abuse 09/26/2023 Comments No Sex and Gender Information Value [...] EDT Office Visit [facility] at [address] [address] Luigi Spencer MD [address] [place] [phone] documented as of this encounter Visit Diagnoses Diagnosis Preop examination- Primary Preoperative examination, unspecified documented in this encounter Care Teams Bridge Design Engineer Relationship Specialty Start Date End Date No, Pcp (Do Not Change Name) PCP - General 01/28/21 documented as of this encounter
== END 2024-07-07 10:59 | disposition home or self-care (01) ==
LOC: HO.HMCH 10:26
PROVIDERS: Visit Provider Internal Medicine
DX: C56.9 Malignant neoplasm of unspecified ovary (principal); I82.522 Chronic embolism and thrombosis of left iliac vein

== ENCOUNTER → 2024-07-07 10:26 | Outpatient (BNVA) | payer OTHER, SELFPAY | PROVIDERS: Visit Provider Internal Medicine | DX: I82.522 Chronic embolism and thrombosis of left iliac vein (principal); C56.9 Malignant neoplasm of unspecified ovary | CPT/HCPCS: 96127 ==

== ENCOUNTER 2025-01-05 11:49 | Outpatient (AMB) | payer OTHER, SELFPAY ==
[2025-01-05 12:08] VITALS: BP 108/62; PULSE 92; RESP 18; TEMP 36.6; O2SAT 99; BMI 23.6
--- NOTE | 2025-01-05 12:08 | MHC.PC.OV ---
Vital Signs 01/05/25 12:08 Height 5 ft 2 in Weight 129 lb 2 oz BMI 23.6 BP 108/62 Blood Pressure Location Lt brachial Position Sitting Respiration 18 Pulse 92 Pulse Source Pulse Oximeter Temp 97.8 F Temp Source Temporal Artery Scan Pulse Oximetry (%) 99 Oxygen Delivery Method Room Air Intake Visit Reasons: PE Intake Note: PE Hoof And Shoe Inspector Required: No Accompanied by: Self / Same As Patient Allergies No Known Allergies Allergy (Verified 01/05/25 12:15) Medication List - Last Reconciled 01/05/25 by Tiera Mckeon MD No Known Home Meds Tobacco use date assessed: 01/05/25 Dental Screening Dental Screen Date: 01/05/25 Did you have a dental visit in the last 12 months?: No Did you have a dental problem in the last 6 months where you did not have access to dental care?: No Was dental information given to patient?: Patient has dentist HPI HPI Comments History of Present Illness Details Patient is here for her physical exam. She had flu vaccine this year. Tdap vaccine done 2020 and next Tdap should be 2030. Mammogram and colonoscopy still pending. 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 Follows with Oncology. [facility] Surgical History History of hysterectomy with bilateral oophorectomy History of appendectomy Family History Mother Hyperlipidemia Atrial fibrillation Father Diabetes Hypertension Hypothyroidism Hyperlipidemia Family/Other Mental health disorder Social History Housing: Apartment Alcohol intake: current Alcohol intake frequency: a few times a month Alcohol type: beer Patient Tobacco Use Status: Never used Tobacco e-Cigarette/Vaping Use: Never Used Second Hand Smoke Exposure: No service: No Current occupational status: employed Current occupational exposures/hazards: No Cognitive needs: No Hearing needs: No Vision needs: Yes Questionnaire Thrive Questionnaire Date Thrive assessed: 07/07/24 I am a: Patient What is your living situation today?: I have a steady place to live Within the past 12 months, did the food you bought not last and you didn't have the money to get more?: Never true Within the past 12 months, did you worry whether your food would run out before you got money to buy more?: Never true Do you have trouble paying for medicines?: No Do you have trouble getting transportation to medical appointments?: No Do you have trouble paying your heating and electricity bill?: No Do you have trouble taking care of your child, family member or friend?: No Do you have trouble with day-to-day activities such as bathing, preparing meals, shopping, managing finances, etc.?: No Are you currently unemployed and looking for a job?: No Are you interested in more education?: No Please select the resources that you would like help with: None Currently or been in a relationship where the following occur: No concerns reported THRIVE Score: 0 AVNI-7 AMB Questionnaire AVNI-7 Date AVNI - 7 assessed: 07/07/24 Source: Developed by Drs. Mekhi Cuevas, Brittney Rg, Brice Dorado and colleagues, with an educational chary from [employer]. Review of Systems Const All systems reviewed & are unremarkable except as noted in HPI and below Card Denies chest pain at rest, Denies chest pain with activity, Denies edema, Denies irregular heart rhythm, Denies claudication, Denies dyspnea, Denies dyspnea on exertion, Denies orthopnea, Denies paroxysmal nocturnal dyspnea and Denies slow heart rate Resp Denies cough, Denies dyspnea and Denies dyspnea on exertion GI Denies abdominal pain, Denies change in bowel habits, Denies excessive flatus, Denies nausea and Denies vomiting Neuro Denies lack of coordination Physical exam (Primary Care) Vital Signs: Last Vital Signs Temp 97.8 F 01/05/25 12:08 Pulse 92 01/05/25 12:08 Resp 18 01/05/25 12:08 BP 108/62 01/05/25 12:08 Pulse Ox 99 01/05/25 12:08 Oxygen Delivery Method Room Air 01/05/25 12:08 BMI result Body Mass Index 23.6 Tobacco/Smoking Status: Tobacco use Status Tobacco use date assessed 01/05/25 01/05/25 12:13 Patient Tobacco Use Status Never used Tobacco 01/05/25 12:13 e-Cigarette/Vaping Use Never Used 01/05/25 12:13 Thrive Assessment: Date of Thrive Assessment Date Thrive assessed 07/07/24 01/05/25 12:08 Currently or been in a relationship where the following occur: No concerns reported [facility] Head: Yes normal to inspection, Yes normocephalic and Yes atraumatic Ears: external ears normal Eyes General: appearance normal, both eyes and all related structures Eyelids: Yes eyelids normal Conjunctivae: conjunctivae normal Neck Neck: Yes normal visual inspection and Yes supple Resp Effort & Inspection: normal respiratory effort Auscultation: clear to auscultation bilaterally Cardio Jugular venous distension: no JVD Rate: regular rate Rhythm: regular rhythm Heart sounds: S1 normal heart sound present and S2 normal heart sound present GI Inspection: Yes normal to inspection Palpation (GI): Soft to palpation and nontender Auscultation: normal bowel sounds Skin General skin exam: no rashes or lesions noted Neuro General: no focal motor deficits Extrem General: Yes full ROM Psych Appearance: grossly normal Coding Level of Care Code Est Pt Prev Care 40-64y([id number]) Diagnoses Physical exam Z00.00 Time Spent (min) 30 Assessment & Plan Assessment & Plan (1) Physical exam: Code(s): Z00.00 - Encounter for general adult medical examination without abnormal findings Category: Medical Plan Repeat in a year. Orders: Orders Vitamin D 25-OH Total Today E55.9 - Vitamin D deficiency, unspecified Comprehensive [place]. 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, I87.1 - Compression of vein CA-125 Today C56.9 - Malignant neoplasm of unspecified ovary Complete Blood Count Auto Diff Today D64.9 - Anemia, unspecified IRON PROFILE Today D64.9 - Anemia, unspecified Lipid Panel Today E78.5 - Hyperlipidemia, unspecified Vitamin B12 and Folate Today E53.8 - Deficiency of other specified B group vitamins Hemoglobin A1c Today E11.9 - Type 2 diabetes mellitus without complications Thyroid Stimulating Hormone Today Z86.39 - Personal history of other endocrine, nutritional and metabolic disease Free T4 (Free Thyroxine) Today Z86.39 - Personal history of other endocrine, nutritional and metabolic disease UA CC w/rflx Micro + Cult Today R30.0 - Dysuria
== END 2025-01-05 12:37 | disposition home or self-care (01) ==
LOC: HO.HMCH 11:49
PROVIDERS: PCP Internal Medicine; Visit Provider Internal Medicine
DX: Z00.00 Encounter for general adult medical examination without abnormal findings (principal)